=== PATIENT | female | born 1980 | race Hispanic/Latino ===

== ENCOUNTER 2021-03-11 07:12 | Observation (INO) | payer SELFPAY ==
[~2021-03-11] VITALS: Ht 170.2 cm; Wt 81.0 kg
--- NOTE | 2021-03-11 07:13 | NUR ---
PT TO ROOM FOR BEDSIDE TRIAGE.
[2021-03-11 07:33] LABS: HEMATOCRIT 32.7 % (37.0-47.0); HEMOGLOBIN 9.7 g/dl (12.0-16.0); IMMATURE GRANULOCYTES 0.1 % (0.0-5.0); MEAN CORPUSCULAR HGB CONC 29.7 g/dL CAL (32.0-36.0); NEUT# 5.06 thou/uL (2.00-7.15); RED BLOOD COUNT 4.61 mill/uL (4.20-5.60)
[2021-03-11 07:43] LABS: MEAN CELL VOLUME 70.9 fL CALC (80.0-100.0)
[2021-03-11 07:48] LABS: ALBUMIN 4.2 g/dL (3.2-5.0); ALKALINE PHOSPHATASE 66 u/l (38-126); BUN 12 mg/dL (7-17); BUN/CREATININE RATIO 29 (12-20 (CALC)); CARBON DIOXIDE 24 mmol/l (22-30); CHLORIDE 104 mmol/l (95-108); CREATININE 0.4 mg/dL (0.5-1.0); GFR > 60 ML/MIN (>=60 (CALC)); GFR FOR AFR.AMER. > 60 ML/MIN (>=60 (CALC)); SGOT/AST 26 u/l (14-36); SODIUM 137 mmol/l (137-146); TOTAL PROTEIN 7.9 g/dL (6.3-8.2)
[2021-03-11 07:57] LABS: MYOGLOBIN 17 ng/mL (0 - 62)
[2021-03-11 07:58] LABS: ANION GAP 12 (6-22 (CALC)); BILIRUBIN, TOTAL 0.2 mg/dL (0.0-1.4); POTASSIUM 3.1 mmol/l (3.5-5.1)
--- NOTE | 2021-03-11 08:28 | NUR ---
PT REPORTS RELIEF FROM PAIN. SKIN WARM AND DRY. RESP EVEN AND UNLABORED. DENIES NAUSEA. ADVISED OF PENDING ADMIT. PT VOICED UNDERSTANDING.
--- NOTE | 2021-03-11 09:40 | NUR ---
telemetry in place pt advised of continued wait time iv site healthy.
--- NOTE | 2021-03-11 10:40 | NUR ---
PT TO BR UNASSISTED W/STEADY GAIT.
--- NOTE | 2021-03-11 10:50 | NUR ---
RECIEVED REPORT FROM GAIL CHEN
--- NOTE | 2021-03-11 10:53 | NUR ---
REPORT PROVIDED TO KYLE, NURSE, ON [facility]. ADVISED OF IV SITE, TELEMETRY AND POC. PT TO [facility] RM 268 IN STABLE CONDITION.
--- NOTE | 2021-03-11 11:00 | NUR ---
PT ARRIVED TO [facility] 268 VIA STRETCHER ACCOMPAINED BY ER STAFF. PT IS A/O X3. ASSESSMENT AND VITALS COMPLETED. BP 102/62, HR 74, O2 100% ON ROOM AIR. RESPIRATIONS ARE EVEN AND UNLABROED WITH NO DISRTESS NOTED. LUNG SOUNDS ARE CLEAR. HEART RHYTHM IS NORMAL WITH TELE IN PLACE, SR PER ER MONITORING. BOWEL SOUNDS ARE ACTIVE IN ALL QUADRANTS. RADIAL AND PEDAL PULSES STRONG. #20G LAC FLUSHED, SITE APPEARS HEALTHY AND PATENT. SKIN INTACT. PT DENIES OF ANY PAST MEDICAL HISTORY. PT DENIES OF ANY ALLERIES, ALLERGY PT COMPLAINS OF 3/10 PAIN IN MEDSTERNAL OF CHEST AND TINGLING IN LEFT ARM. MD NOTIFIED. PT DENIES OF ANY ADDITIONAL NEEDS AT THIS TIME. ALL SAFETY PRECAUTIONS ARE IN PLACE WITH CALL LIGHT INREACH. WILL CONTINUE TO MONITOR.
[2021-03-11 11:09] VITALS: BP 102/62
--- NOTE | 2021-03-11 11:35 | NUR ---
RT CALLED FOR EKG.
--- NOTE | 2021-03-11 11:38 | NUR ---
RT AT BEDSIDE TO COMPLETE EKG.
--- NOTE | 2021-03-11 12:24 | NUR ---
PT MEDICATED WITH MORPHINE AND ZOFRAN FOR 6/10 IN CHEST "TIGHTNESS". PT REMAINS A/O X3. RESPIRATIONS ARE EVEN AND UNLABORED. #20G LAC REMAINS IN PLACE. PT DENIES OF ANY ADDITIONAL PAINS OR NEEDS AT THIS TIME. ALL SAFETY PRECAUTIONS ARE IN PLACE WITH CALL LIGHT IN REACH. WILL CONTINUE TO MONITOR.
--- NOTE | 2021-03-11 12:50 | NUR ---
PT SITTING UP ON SIDE OF BED CRYING. PT STATES THAT MORPHINE HAS NOT HELPED AND PAIN IS NOW A 10/10. PT STATES PAIN IN STILL MIDSTERNAL AND GOES TO LEFT SHOULDER. PT DENIES OF ANY PALPATATIONS. BP 118/74, HR 74, 02 AT 100% ON ROOM AIR. EVP SALES TO REMAIN AT BEDSIDE
--- NOTE | 2021-03-11 13:00 | NUR ---
SUPERVISOR TWISTING DEPARTMENT INFORMED BY AGIL FERNANDEZ FROM ER THAT PT HAS HAD SOME ST ELEVATION. NOTIFIED.
--- NOTE | 2021-03-11 13:03 | NUR ---
DT AT BEDSIDE COMPLETING EKG.
--- NOTE | 2021-03-11 13:28 | NUR ---
PT NOW RESTING IN SEMI FOWLERS POSITION WITH EYES CLOSED. RESPIRATIONS ARE EVEN AND UNLABORED. PAIN HAS SEEMED TO SUBSIDE. ORDERS FROM DR MARQUEZ FOR NITRO PASTE X1 DOSE AND INCREASE MORPINE TO 4MG IF PAIN CONTINUES. TELE MONTORING IN PLACE. ALL SAFETY PRECAUTIONS ARE IN PLACE WITH CALL LIGHT INR EACH. WILL CONTINUE TO MONITOR.
--- NOTE | 2021-03-11 13:51 | NUR ---
PT RESTING IN SEMI FOWLERS POSITION. RESPIRATIONS ARE EVEN AND UNLABORED. PT STATES THAT PAIN IS NOW GONE. TELE MONITPRING REMAINS IN PLACE. PT TO BE TRANSPORTED TO CT VIA WHEELCHAIR IN STABLE CONDITION ACCOMPAINED BY LITZY ROJAS IN STABLE CONDITION.
--- NOTE | 2021-03-11 14:02 | NUR ---
PT BACK FROM CT. PT AMBULATED TO BED WITH STEADY GAIT. RESPIRATIONS REMAINS EVEN AND UNLABORED. PT DENIES OF ANY CHEST PAIN AT THIS TIME. TELE MONITORING IN PLACE. ALLS AFETY PRECAUTIONS ARE IN PLACE. WILL CONTINUE TO MONITOR.
[2021-03-11 15:24] VITALS: BP 117/63
--- NOTE | 2021-03-11 15:59 | NUR ---
PT SITTING IN SEMI FOWLERS POSITION WITH AT BEDSIDE. RESPIRATIONS ARE EVEN AND UNLABROED WITH NO DISTRESS NOTED. #20G LAC REMAINS IN PLACE. PT DENIES OF CHEST PAIN AT THIS TIME. TELE MONITORING REMAINS IN PLACE. ALL SAFETY PRECAUTIONS ARE IN PLACE WITH CALL LIGHT INREACH. WILL CONTINUE TO MONITOR.
--- NOTE | 2021-03-11 20:00 | NUR ---
PATIENT RESTING IN BED-POSITIONED ON LEFT SIDE WITH EYES CLOSED. RESPS ARE EVEN AND UNLABORED. LAST TROP WAS NEG. TELE MONITOR IN PLACE-LAST READING WAS SR-[id number]. SALINE LOCK TO LAC INTACT. CALL LIGHT IN REACH. WILL CONT TO MONITOR.
[2021-03-11 20:29] VITALS: BP 103/53
[2021-03-12 00:03] VITALS: BP 98/58
--- NOTE | 2021-03-12 00:12 | NUR ---
PATIENT RESTING IN BED AT THIS TIME-AWAKE ALERT AND ORIENTEDX3 WITH NO COMPLAINTS. DENIES ANY PAIN OR SOB AT THIS TIME. TELE MONITOR IN PLACE. SALINE LOCK TO LAC INTACT. MN TROP WAS JUST DRAWN. CALL LIGHT IN REACH. WILL CONT TO MONITOR.
[2021-03-12 03:57] VITALS: BP 102/56
--- NOTE | 2021-03-12 04:20 | NUR ---
PATIENT APPEARS SLEEPING AT THIS TIME-POSITIONED ON LEFT SIDE WITH EYES CLOSED. RESPS ARE EVEN AND UNLABORED. TELE MONITOR IN PLACE. SALINE LOCK TO LAC INTACT. CALL LIGHT IN REACH. WILL CONT TO MONITOR.
[2021-03-12 05:55] LABS: HEMATOCRIT 29.9 % (37.0-47.0); IMMATURE GRANULOCYTES 0.1 % (0.0-5.0); MEAN CELL VOLUME 70.2 fL CALC (80.0-100.0); MEAN CORPUSCULAR HGB 21.1 pG CALC (26.0-32.0); MEAN CORPUSCULAR HGB CONC 30.1 g/dL CAL (32.0-36.0); NEUT# 9.27 thou/uL (2.00-7.15); RED BLOOD COUNT 4.26 mill/uL (4.20-5.60); RED CELL DISTRI WIDTH 18.2 % (11.5-15.5)
[2021-03-12 06:19] LABS: BUN 13 mg/dL (7-17); BUN/CREATININE RATIO 40 (12-20 (CALC)); CARBON DIOXIDE 22 mmol/l (22-30); CHLORIDE 105 mmol/l (95-108); CREATININE 0.3 mg/dL (0.5-1.0); GFR > 60 ML/MIN (>=60 (CALC)); GFR FOR AFR.AMER. > 60 ML/MIN (>=60 (CALC)); SODIUM 135 mmol/l (137-146)
[2021-03-12 06:30] LABS: ANION GAP 12 (6-22 (CALC)); POTASSIUM 4.2 mmol/l (3.5-5.1)
--- NOTE | 2021-03-12 07:00 | NUR ---
REPORT RECEIVED FROM GAIL MCKEON
[2021-03-12 08:00] VITALS: BP 102/60
--- NOTE | 2021-03-12 08:00 | NUR ---
PT RESTING IN SEMI FOWLERS POSITION,A&O X3;VS OBTAINED AND ASSESSMENT COMPLETED;PT DENIES ANY CURRENT PAIN OR DISCOMFORTS,PAIN SCALE AND REPORTING EDUCATED;RESPIPRATIONS EVEN AND UNLABORED ON RA,CLEAR LUNG SOUNDS;ABDOMEN SOFT ON PALPATION AND ACTIVE IN ALL 4 QUADRANTS;STRONG PEDAL PULSES;SKIN INTACT;TELE MONITORING IN PLACE;#20G TO LAC FLUSHED AND PATENT,SITE APPEARS HEALTHY;PT DENIES ANY ADDITIONAL NEEDS AND IS ENCOURAGED TO CALL FOR ASSISTANCE IF NEEDED;FALL PRECAUTIONS IN PLACE WITH BED IN THE LOWEST POSITION AND CALL LIGHT IN REACH;WILL CONTINUE TO MONITOR
--- NOTE | 2021-03-12 11:22 | NUR ---
AT BEDSIDE DISCUSSING POC INCLUDING D/C PLANS.
--- NOTE | 2021-03-12 11:30 | NUR ---
PT RESTING IN RECLINER;RESPIRATIONS EVEN AND UNLABORED ON RA;PT DENIES ANY CURRENT PAIN OR DISCOMFORTS;TELE MONITORING IN PLACE;IV SITE PATENT;PT EDUCATED ON PLANS TO D/C HOME THIS AFTERNOON AND VERBALIZES UNDERSTANDING;ENCOURAGED TO CALL FOR ASSISTANCE IF NEEDED;CALL LIGHT IN REACH;WILL CONTINUE TO MONITOR
[2021-03-12 12:00] VITALS: BP 100/60
--- NOTE | 2021-03-12 14:30 | NUR ---
ALL DISCHARGE INSTRUCTIONS PROVIDED AT THIS TIME;PT INSTRUCTED TO D/U WITH PCP FOR POSSIBLE CARDIAC REFERRAL SINCE CARDIC HX RUNS IN THE FAMILY;PT DENIES ANY ADDITIONAL QUESTIONS OR NEEDS;IV SITE REMOVED WITH CATHETER INTACT AND TELE MONITORING D/C;WHELCHAIR TO BE PROVIDED FOR D/C HOME;SPOUSE TO TRANSPORT PT HOME;WILL CONTINUE TO MONITOR
--- NOTE | 2021-03-12 14:40 | NUR ---
Discharge instructions given. Patient verbalizes understanding of same. Discharged in stable condition via Wheelchair to Home with family. All belongings sent with pt. PT TRANSPORTED TO [facility] BY AMBULATION ACCOMPANIED BY GAIL LOVELL. PT REFUSED WC FOR D/C HOME.ALL BELONGINGS LEFT WITH PT.
== END 2021-03-12 14:40 | disposition home or self-care (01) | DRG 313 ==
LOC: ED 07:12 → ED-I 08:25 → ED 08:34 → MS2 08:35
PROVIDERS: Emergency Medicine; ADMIT Internal Medicine; ATTEND Internal Medicine
DX: R07.2 Precordial pain (principal); D64.9 Anemia, unspecified; Z82.49 Family history of ischemic heart disease and other diseases of the circulatory system; Z20.822 Contact with and (suspected) exposure to COVID-19
CPT/HCPCS: G0378; Q9967